=== PATIENT | male | born 1975 | race Caucasian/White ===

== ENCOUNTER 2021-01-17 16:08 | Observation (INO) ==
[2021-01-17] MEDS: 0.9 % Sodium Chloride 1,000 ML IVC SCH ×2 (16:35→17:57)
[2021-01-17 16:37] LABS: VBG HCO3 26 mEq/L (21-27); VBG PCO2 44 mmHg (41-51); VBG PH 7.37 pH Units (7.32-7.42); VBG PO2 140 mmHg (25-50)
[2021-01-17 16:39] LABS: Basophils % 0.5 %; Eosinophils # 0.1 K/mcL (0.0-0.6); Eosinophils % 1.4 %; Hematocrit 46.1 % (37.5-50.1); Hemoglobin 15.2 g/dL (12.9-16.9); Immature Granulocytes % 0.2 % (0-4); Lymphocytes # 1.2 K/mcL (0.6-4.6); Lymphocytes % 18.1 %; Mean Corpuscular Hemoglobin 31.3 pg (28.0-33.3); Mean Corpuscular Volume 95.1 fL (83.0-100.0); Monocytes # 0.5 K/mcL (0.0-1.3); Monocytes % 8.4 %; Neutrophils # 4.6 K/mcL (1.6-8.9); Platelet Count 152 K/mcL (140-400); Red Blood Count 4.85 M/mcL (4.19-5.50); Red Cell Distribution Width 12.3 % (11.5-14.5); Segmented Neutrophils % 71.4 %; White Blood Count 6.4 K/mcL (4.3-11.1)
[2021-01-17 16:47] LABS: Bilirubin,Urine Negative (Negative); Blood,Urine Negative (Negative); Clarity,Urine Clear (Clear); Color,Urine Colorless (Yellow); Glucose,Urine (UA) >=1000 mg/dL (Normal); Ketones,Urine Negative (Negative); Leukocyte Esterase,Urine Negative (Negative); Nitrite,Urine Negative (Negative); Protein,Urine Negative (Neg-Trace); RBC,Urine 0-3 per hpf (0-3); Specific Gravity,Urine 1.029 (1.010-1.025); Urobilinogen,Urine Normal (Normal); WBC,Urine 0-3 per hpf (0-3)
[2021-01-17 17:17] LABS: BUN/Creatinine Ratio 16 (6-26); Blood Urea Nitrogen 19 mg/dL (6-20); Calcium 9.2 mg/dL (8.6-10.3); Carbon Dioxide 24 mEq/L (23-29); Chloride 92 mEq/L (98-107); Glucose 1007 mg/dL (70-105); Magnesium 1.4 mg/dL (1.6-2.6); Osmolality,Calculated 313 (280-300); Phosphorous 2.7 mg/dL (2.7-4.5); Potassium 4.8 mEq/L (3.5-5.1); Sodium 125 mEq/L (136-145); Troponin I < 0.03 ng/mL (< 0.04); eGFR For African Americans > 60 (> 60); eGFR For Non-African Americans > 60 (> 60)
[2021-01-17] MEDS ORDERED: 0.9 % Sodium Chloride 1,000 ML IVC ONE ×2 (17:19→17:29)
[2021-01-17] MEDS ORDERED: Insulin Human Regular 100 UNIT in 0.9 % Sodium Chloride 100 ML IVC SCH ×2 (17:30→18:00)
[2021-01-17] MEDS ORDERED: *HR* Dextrose 50 % in Water (Vial) 50 ML VIAL IVP PRN ×2 (17:46→22:36)
[2021-01-17] MEDS ORDERED: D5% in 0.45% NACL w KCl 20 MEQ/1,000 ML MLS IVC PRN (17:46)
[2021-01-17] MEDS ORDERED: Naloxone 0.4 MG/ML INJ IVP PRN (17:46)
[2021-01-17] MEDS ORDERED: D5% in 0.45% NACL 1,000 ML IVC PRN (17:46)
[2021-01-17] MEDS ORDERED: Insulin Regular, Human 100 UNIT/ML IV PRN ×2 (17:46)
[2021-01-17] MEDS ORDERED: Ondansetron 4 MG/2 ML VIAL IVP PRN (17:46)
[2021-01-17] MEDS ORDERED: Acetaminophen 325 MG TABLET PO PRN (17:46)
[2021-01-17] MEDS ORDERED: 0.9 % Sodium Chloride 1,000 ML IVC SCH ×2 (18:00)
[2021-01-17] MEDS ORDERED: 0.9 % Sodium Chloride w KCl 20 MEQ/1,000 ML MLS IVC SCH ×2 (18:00)
[2021-01-17] MEDS ORDERED: 0.45 % Sodium Chloride w/KCl 20 MEQ/1,000 ML MLS IVC SCH ×2 (18:00)
[2021-01-17] MEDS ORDERED: D5% in 0.45% NACL w KCl 20 MEQ/1,000 ML MLS IVC SCH (20:45)
[2021-01-17 22:12] LABS: Chloride 106 mEq/L (98-107); Potassium 3.8 mEq/L (3.5-5.1); Sodium 137 mEq/L (136-145)
[2021-01-17 22:30] LABS: BUN/Creatinine Ratio 19 (6-26); Blood Urea Nitrogen 15 mg/dL (6-20); Calcium 8.6 mg/dL (8.6-10.3); Carbon Dioxide 22 mEq/L (23-29); Glucose 177 mg/dL (70-105); Osmolality,Calculated 289 (280-300); eGFR For African Americans > 60 (> 60); eGFR For Non-African Americans > 60 (> 60)
[2021-01-17] MEDS ORDERED: Insulin DETEMIR 100 UNIT/ML X5UNITS SUBQ ONE (22:36)
[2021-01-17] MEDS ORDERED: D5% in Water 1,000 ML IVC PRN (22:36)
[2021-01-17] MEDS ORDERED: Dextrose Gel 15 GM/37.5 ML TUBE PO PRN ×2 (22:36)
[2021-01-18 02:37] LABS: BUN/Creatinine Ratio 17 (6-26); Blood Urea Nitrogen 14 mg/dL (6-20); Calcium 8.6 mg/dL (8.6-10.3); Carbon Dioxide 23 mEq/L (23-29); Chloride 105 mEq/L (98-107); Glucose 271 mg/dL (70-105); Magnesium 1.8 mg/dL (1.6-2.6); Osmolality,Calculated 292 (280-300); Phosphorous 2.6 mg/dL (2.7-4.5); Potassium 3.7 mEq/L (3.5-5.1); Sodium 136 mEq/L (136-145); eGFR For African Americans > 60 (> 60); eGFR For Non-African Americans > 60 (> 60)
[2021-01-18 03:01] LABS: Estimated Average Glucose 206 mg/dl; Hemoglobin A1C 8.8 %
[2021-01-18 03:44] VITALS: BP 101/62
[2021-01-18 06:38] LABS: Hematocrit 42.8 % (37.5-50.1); Hemoglobin 15.1 g/dL (12.9-16.9); Mean Corpuscular HGB Conc 35.3 g/dL (31.6-35.5); Mean Corpuscular Hemoglobin 31.7 pg (28.0-33.3); Mean Corpuscular Volume 89.7 fL (83.0-100.0); Mean Platelet Volume 10.4 fL (9.4-12.4); Platelet Count 143 K/mcL (140-400); Red Blood Count 4.77 M/mcL (4.19-5.50); Red Cell Distribution Width 12.1 % (11.5-14.5); White Blood Count 6.2 K/mcL (4.3-11.1)
[2021-01-18] MEDS ORDERED: Insulin LISPRO 300 UNITS/3 ML VIAL SUBQ SCH ×2 (07:30→21:00)
== END 2021-01-18 09:49 | disposition home or self-care (01) ==
LOC: EMEROOARM 16:08 → 2NNU 16:08 → SUATTDRO 19:06 → 2NNU 19:48
PROVIDERS: ADMIT Internal Medicine; ATTEND Student in an Organized Health Care Education/Training Program